=== PATIENT | male | born 2000 | race Caucasian/White ===

== ENCOUNTER 2018-09-09 17:38 | Emergency (ER) | payer MEDICAID ==
[~2018-09-09] VITALS: Ht 175.3 cm; Wt 93.4 kg
[2018-09-09 17:44] VITALS: BP 137/88
--- NOTE | 2018-09-09 18:07 | NUR ---
PATIENT PRESENTS TO ED WITH C/O PRODUCTIVE COUGH, CHEST CONGESTION, FATIGUE X 1 WK DENIES N/V/D . . DENIES N/V/D; SKIN IS PINK/WARM/DRY; AAOX4 WITH EVEN AND STEADY GAIT; LUNGS CLEAR BL; HR EVEN AND REGULAR; PT DENIES ANY FEVER, CP, AT THIS TIME; PATIENT STATES PAIN OF 0/10 AT THIS TIME; VSS; PATIENT POSITIONED FOR COMFORT; HOB ELEVATED; BEDRAILS UP X2; BED DOWN. ER MD MADE AWARE OF PT STATUS.
--- NOTE | 2018-09-09 18:10 | NUR ---
Patient being evaluated by physician at bedside.
[2018-09-09] MEDS ORDERED: methylPREDNISolone SS 125 MG/2 ML VIAL IM ONE (18:20)
[2018-09-09] MEDS ORDERED: ALBUTEROL SULFATE/IPRATROPIU 3 ML SOL IH ONE (18:20)
--- NOTE | 2018-09-09 19:13 | NUR ---
Patient discharged with v/s stable. Written and verbal after care instructions given and explained. Patient alert, oriented and verbalized understanding of instructions. Ambulatory with steady gait. All questions addressed prior to discharge. ID band removed. Patient advised to follow up with PMD. Rx of ALBUTEROL/ZYRTEC/PREDNISONE/PHENERGAN given. Patient educated on indication of medication including possible reaction and side effects. Opportunity to ask questions provided and answered.
[2018-09-09 19:14] VITALS: BP 118/68
== END 2018-09-09 19:14 | disposition home or self-care (01) ==
LOC: MED 17:38
DX: J20.9 Acute bronchitis, unspecified (principal)
CPT/HCPCS: 96372; 99283; J2930; J7620; 94640

== ENCOUNTER 2021-04-24 18:32 | Emergency (ER) | payer MEDICAID, SELFPAY ==
[~2021-04-24] VITALS: Ht 180.3 cm; Wt 81.6 kg
[2021-04-24 18:55] VITALS: BP 136/85
--- NOTE | 2021-04-24 19:05 | NUR ---
C/O N/V/D, FEVER, COUGH, 10/10 ABDOMINAL PAIN, QUESADA X 3 DAYS. PMH: DENIES
[2021-04-24] MEDS ORDERED: PROM118S5 PO (19:26)
[2021-04-24] MEDS ORDERED: IBUP-2213 PO (19:26)
[2021-04-24] MEDS ORDERED: LOPE1TAB14 PO (19:26)
[2021-04-24 20:05] VITALS: BP 136/85
--- NOTE | 2021-04-24 20:05 | NUR ---
Patient discharged with v/s stable. Written and verbal after care instructions given and explained. Patient verbalized understanding. Ambulatory with steady gait. All questions addressed prior to discharge. Advised to follow up with PMD.
== END 2021-04-24 20:05 | disposition home or self-care (01) ==
LOC: MED 18:32
DX: R19.7 Diarrhea, unspecified (principal); Z20.822 Contact with and (suspected) exposure to COVID-19; R50.9 Fever, unspecified; J45.909 Unspecified asthma, uncomplicated; Z79.899 Other long term (current) drug therapy
CPT/HCPCS: 99283; U0003

== ENCOUNTER 2021-10-15 18:32 | Emergency (ER) | payer MEDICAID, SELFPAY ==
[~2021-10-15] VITALS: Ht 177.8 cm; Wt 81.6 kg
[~2021-10-15 18:32] MED LIST: IBUP-2213 PO; LOPE1TAB14 PO; PROM118S5 PO
[2021-10-15 19:37] VITALS: BP 148/74
--- NOTE | 2021-10-15 19:42 | NUR ---
PT IN TENT.
[2021-10-15] MEDS ORDERED: ONDA-188 PO (20:08)
[2021-10-15] MEDS ORDERED: NAPR-1704 PO (20:08)
[2021-10-15] MEDS ORDERED: ACETAMINOPHEN 325 MG TAB PO ONE (20:10)
[2021-10-15 20:29] VITALS: BP 148/74
--- NOTE | 2021-10-15 20:29 | NUR ---
Patient discharged with v/s stable. Written and verbal after care instructions given and explained. Patient alert, oriented and verbalized understanding of instructions. Ambulatory with steady gait. All questions addressed prior to discharge. ID band removed. Patient advised to follow up with PMD. Rx of NAPROSYN AND ZOFRAN given. Patient educated on indication of medication including possible reaction and side effects. Opportunity to ask questions provided and answered.
== END 2021-10-15 20:29 | disposition home or self-care (01) ==
LOC: MED 18:32
DX: U07.1 COVID-19 (principal); J45.909 Unspecified asthma, uncomplicated; Z88.0 Allergy status to penicillin
CPT/HCPCS: 99283; U0003

== ENCOUNTER 2022-08-25 12:17 | Emergency (ER) | payer MEDICAID ==
[~2022-08-25] VITALS: Ht 177.8 cm; Wt 101.6 kg
[~2022-08-25 12:17] MED LIST changes: +NAPR-1704 PO; +ONDA-188 PO
[2022-08-25 12:40] VITALS: BP 149/89
--- NOTE | 2022-08-25 12:45 | NUR ---
COVID & FLU SWABS DONE.
--- NOTE | 2022-08-25 12:55 | NUR ---
C/O VOMITING BLOOD X TODAY AND C/O COUGH X 5 DAYS.
[2022-08-25 13:12] LABS: BASOPHILS # (AUTO) 0.1 K/uL (0.00-0.22); BASOPHILS % (AUTO) 0.7 % (0.0-2.0); EOSINOPHILS # (AUTO) 0.2 K/uL (0-0.4); EOSINOPHILS % (AUTO) 2.2 % (0.0-4.0); HEMOGLOBIN 16.6 g/dL (12.0-18.0); LYMPHOCYTES # (AUTO) 2.4 K/uL (2.0-11.5); LYMPHOCYTES % (AUTO) 20.9 % (20.5-51.1); MEAN CORPUSCULAR HEMOGLOBIN 29 pg (27-31); MEAN CORPUSCULAR HGB CONC 35 g/dL (33-37); MEAN CORPUSCULAR VOLUME 84.1 fL (80-94); MONOCYTES # (AUTO) 0.6 K/uL (0.8-1.0); MONOCYTES % (AUTO) 5.2 % (1.7-9.3); PLATELET COUNT (AUTO) 253 K/uL (140-450); RED BLOOD CELL COUNT(AUTO) 5.71 MIL/uL (4.20-6.10); RED CELL DISTRIBUTION WIDTH 12.9 % (11.6-13.7); WHITE BLOOD COUNT (AUTO) 11.3 K/uL (4.8-10.8)
[2022-08-25 13:42] LABS: ANION GAP 10.7 (8-16); CARBON DIOXIDE 31.6 mmol/L (21-32); CREATININE 0.9 mg/dL (0.6-1.3); POTASSIUM 4.3 mmol/L (3.5-5.1)
[2022-08-25] MEDS ORDERED: ONDA-188 PO (13:56)
[2022-08-25] MEDS ORDERED: OXYM20SP1 NS (13:56)
[2022-08-25 14:15] VITALS: BP 126/76
--- NOTE | 2022-08-25 14:15 | NUR ---
Patient discharged with v/s stable. Written and verbal after care instructions given and explained. Patient alert, oriented and verbalized understanding of instructions. Ambulatory with steady gait. All questions addressed prior to discharge. ID band removed. Patient advised to follow up with PMD. Rx of LANA SIBLEY given. Patient educated on indication of medication including possible reaction and side effects. Opportunity to ask questions provided and answered.
== END 2022-08-25 14:15 | disposition home or self-care (01) ==
LOC: MED 12:17
DX: J06.9 Acute upper respiratory infection, unspecified (principal); Z20.822 Contact with and (suspected) exposure to COVID-19; R11.2 Nausea with vomiting, unspecified; Z88.0 Allergy status to penicillin; Z79.899 Other long term (current) drug therapy
CPT/HCPCS: 36415; 71045; 80048; 85025; 99284